=== PATIENT | female | born 1995 | race Hispanic/Latino ===

== ENCOUNTER → 2022-08-05 | Emergency (ER) | payer OTHER ==
[~2022-08-05] VITALS: Ht 152.4 cm; Wt 68.0 kg
[2022-08-05 17:21] VITALS: BP 135/66
== END | disposition left against medical advice (07) ==
LOC: EDH 17:20
DX: Z32.00 Encounter for pregnancy test, result unknown (principal); Z53.21 Procedure and treatment not carried out due to patient leaving prior to being seen by health care provider